=== PATIENT | female | born 1950 | race Caucasian/White ===

== ENCOUNTER 2024-12-13 10:30 | Outpatient (CLI) | payer MEDICARE, SELFPAY ==
[2024-12-13 11:07] LABS: Basophils Absolute Auto 0.1 K/mm3 (0.0-0.1); Basophils Percent Auto 1.2 % (0.2-1.2); Eosinophils Absolute Auto 0.2 K/mm3 (0-0.3); Eosinophils Percent Auto 3.9 % (0-4.4); Hematocrit 44.4 % (37.0-47.0); Hemoglobin 14.1 g/dL (12.0-15.0); Immature Granulocyte Absolute 0.02 K/mm3 (0.00-0.031); Immature Granulocyte Percent A 0.3 % (0-0.5); Lymphocytes Absolute Auto 1.24 K/mm3 (0.9-3.2); Lymphocytes Percent Auto 21.3 % (18.3-44.2); Mean Corpuscular HGB Conc 31.8 g/dl (32-36); Mean Corpuscular Hemoglobin 29.8 pg (26-34); Mean Corpuscular Volume 93.9 fl (80-100); Mean Platelet Volume 9.8 fl (7.4-10.4); Monocytes Absolute Auto 0.6 K/mm3 (0.1-0.6); Neutrophils Absolute Auto 3.6 K/mm3 (1.3-6.7); Neutrophils Percent Auto 62.3 % (45.5-73.1); Platelet Count Result 355 k/mm3 (150-375); Red Blood Count 4.73 M/mm3 (4.2-5.4); Red Cell Distribution Width 13.8 % (11.5-14.5); White Blood Count 5.8 K/mm3 (4.5-10.0)
[2024-12-13 11:21] LABS: Alanine Aminotransferase 31 U/L (6-35); Albumin Level 4.7 g/dL (3.5-5.1); Alkaline Phosphatase 100 U/L (38-126); Anion Gap 10 mmol/L (4-12); Aspartate Amino Transferase 20 U/L (14-36); Bilirubin,Total 0.8 mg/dL (0.2-1.3); Blood Urea Nitrogen 18 mg/dL (7-17); Calcium 10.3 mg/dL (8.4-10.2); Carbon Dioxide 28 mmol/L (22-30); Chloride 101 mmol/L (98-107); Cholesterol 238 mg/dL (0-200); Estimated Glomerular Filt Rate 46; Glucose 165 mg/dL (65-110); HDL Direct 61 mg/dL; Potassium 4.1 mmol/L (3.4-5.0); Sodium 139 mmol/L (137-145); Triglycerides 155 mg/dL (<150)
[2024-12-13 11:29] LABS: NT Pro B Type Natriuretic Pept 1800 pg/mL (19.9-100)
[2024-12-13 11:32] LABS: LDL Cholesterol Direct 141 mg/dL
--- OUTSIDE RECORDS SUMMARY | 2024-12-13 11:40 | XMS_ITS | Clinical Summary ---
Author Organization [facility] Address [address] [place] [address] Care Team Providers Care Aoc Operations Intelligence Officer Name Role Phone Waylon Singletary MD Primary Care Provider Allergies Active Allergy Reactions Criticality Noted Date Comments Codeine Hydrocodone Diarrhea Reaction: diarrhea, Tramadol Vomiting Reaction: vomiting, Medications acetaminophen 500 mg capsule Take 2 capsules (1,000 mg total) by mouth every 6 (six) hours as needed for pain 60 capsule 10/17/2023 Active Active Problems Problem Noted Date Diagnosed Date Sacral insufficiency fracture, initial encounter 10/14/2023 Sacral insufficiency fracture 2023 Calculus of kidney 04/02/2014 Overview (02/19/2017): CALCULUS OF KIDNEY Type 2 diabetes mellitus 04/02/2014 Overview (02/21/2017): DMII WO CMP NT ST UNCNTR Hypertension 04/02/2014 Overview (02/21/2017): HYPERTENSION NOS Hyperlipidemia 04/02/2014 Overview (02/22/2017): HYPERLIPIDEMIA NEC/NOS Immunizations Name Administration Dates Next Due Influenza, Split 09/02/2013 Surgical History Surgery Date Site/Laterality Comments CHOLECYSTECTOMY 2007 Cholecystectomy Medical History Medical History Date Comments Hx Other Medical ? Hx of kidney stones Awareness under anesthesia patie nt states during one procedure she did wake up during the procedure Hypertension GERD (gastroesophageal reflux disease) Family History Medical History Relation Name Comments Diabetes type I Brother Diabetes -Ty pe I; Parkinsonism Father Parkinson's dis ease; Diabetes type II Mother Diabetes -T ype II; Relation Name Status Comments Brother Father Mother Social History Tobacco Use Types Packs/Day Years Used Date Smoking Tobacco: Never Alcohol Use Standard Drinks/Week Comments Yes 0 (1 standard drink = 0.6 oz pur e alcohol) AUDIT-C Answer Date Recorded Q1: How often do you have a drink containing alcohol? Never 10/15/2023 Q2: How many drinks containi ng alcohol do you have on a typical day when you are drinking? Patient does not drink Q3: How often do you have si x or more drinks on one occasion? Never 10/15/2023 Personal Safety Answer Date Recorded Have you ever been in or are you currently in a harmful physical or emotional relationship or is someone making you feel afraid or unsafe? Denies 10/15/2023 Comments Unknown Sex and Gender Information Value Date Recorded Sex Assigned at Not on file Legal Sex Female 12:43 AM WIRE SPLICER Gender Identity Not on file Sexual Orientation Not on file Obstetrics History Last Filed Vital Signs Vital Sign Reading Time Taken Comments Blood Pressure 133/80 10/17/2023 12:11 PM WIRE SPLICER Pulse 103 10/17/2023 12:11 PM WIRE SPLICER Temperature 37.3 ??C (99.1 ??F) 10/17/2023 1 2:11 PM WIRE SPLICER Respiratory Rate 16 10/17/2023 12:1 1 PM WIRE SPLICER Oxygen Saturation 98% 10/17/2023 12: 11 PM WIRE SPLICER Inhaled Oxygen Concentration - - Weight 98.8 kg (217 lb 12.8 oz) 10/14/2023 8:00 PM WIRE SPLICER Height 157.5 cm (5' 2.01 ) 10/14/2023 8:00 PM CS T Body Mass Index 39.83 10/14/2023 8:00 PM WIRE SPLICER Plan of Treatment Health Maintenance Due Date Last Done Comments Albumin Creatinine Ratio, Urine 1949 Colon Cancer Screening-Colonoscopy 1950 Depression Screening 1950 Hepatitis C Screening 1950 Osteoporosis Screening-Bone Density Scan 1949 Dilated Eye Exam 1949 Foot Exam 1949 DTaP/Tdap/Td Vaccine (1 - Tdap) 1960 Hepatitis B Screening 1967 Well Visit 65+ 2014 Zoster Vaccine (2 of 3) 02/06/2016 12/12/2015 Pneumococcal vaccine 65+ (2 of 2 - PPSV23 or PCV20) 02/26/2020 01/01/2020 Hemoglobin A1C 04/13/2024 10/14/2023 Covid-19 Vaccine ( - 2023-2 5 season) 2024 08/19/2023, 05/24/2022, 10/08/2021, Additional history exists Influenza Vaccine (#1) 2024 , 08/31/2022, 09/02/2021, Additional history exists Lipid Panel 10/14/2024 10/14/2023 Fall Risk Assessment 10/17/2024 10/17/2023 eGFR 10/17/2024 10/17/2023, 09/19, 10/14/2023, Additional history exists Medical Devices Implanted Type Area Bun Icer Device Identifier Shelf Expiration Date Model / Serial / Lot Synthes Washer Round Css+ Titanium [id number] - [id number] Implanted:Qty: 1 on 10/15/2023 by Ronal Duvall MD at [facility] Left: Pelvis Synthes I [id number] / / Synthes Screw Bone Cannulated St Full Thread Css+ [id number] Ti 04.355.811s - [id number] Implanted:Qty: 2 on 10/15/2023 by Ronal Duvall MD at [facility] Left: Pelvis Synthes I [id number] S / / Explanted Type Area Bun Icer Device Identifier Shelf Expiration Date Model / Serial / Lot Synthes Screw Bone Cannulated St Full Thread Css+ [id number] Ti [id number] - [id number] Explanted:Qty: 1 on 10/15/2023 by Ronal Duvall MD at [facility] Left: Pelvis Synthes I [id number] S / / Procedures Procedure Name Priority Date/Time Associated Diagnosis Comments EGFR Routine 10/17/2023 12:34 AM WIRE SPLICER LIPID PANEL Routine 10/14/2023 8:47 PM WIRE SPLICER HEMOGLOBIN A1C STAT 10/14/2023 1:57 PM WIRE SPLICER from Last 3 Months or Most Recently Relevant to Health Maintenance Results * (ABNORMAL) eGFR (10/17/2023 12:34 AM WIRE SPLICER) [facility] eGFR 59(L) >=60 mL/min/1. 73 m2 [facility] Comment: Interpretive Data Reference Interval Normal ?>/= 90 mL/min/1.73m2 Mildly decreased* ? 60 - 89 mL/min/1.73m2 Mildly to moderately decreased ?45 - 59 mL/min/1.73m2 Moderately to severely decreased ??30 - 44 mL/min/1.73m2 Severely decreased ?15 - 29 mL/min/1.73m2 Kidney Failure ?< 15 ??mL/min/1.73m2 *Relative to young adult level Estimated glomerular filtration rate is determined by the 2020 CKD-EPI equation recommended by the National Kidney Foundation (A Unifying Approach to GFR Estimation: Recommendations of the NKF-ASK Task Force on Reassessing the Inclusion of Race in Diagnosing Kidney Disease, JASN 2020). The CKD-EPI equation should not be used for patients with unstable renal function and has not been validated in children and those over 70. Current interpretive data was last reviewed 2021. Blood 10/17/2023 12:3 4 AM WIRE SPLICER 10/17/2023 12:47 AM WIRE SPLICER us Sowmya Lazo NP LAB BLOOD ORDERABLES Fi nal Result [facility] Department [place] [address] * (ABNORMAL) Lipid panel (10/14/2023 8:47 PM WIRE SPLICER) [facility] Signature Cholesterol 143 30 - 199 mg/dL [facility] Comment: Interpretive Data Ages < or = 19 years ??Acceptable: ? <170 mg/dL ??Borderline high: ??170-199 mg/dL ??High: ? >or= 200 mg/dL Ages > or = 20 years ??Desirable: ?<200 mg/dL ??Borderline high: ??200-239 mg/dL ??High: ? >or= 240 mg/dL Literature References: 1. Expert Panel on Integrated Guidelines for Cardiovascular Health and Risk Reduction in Children and Adolescents. Pediatrics 2011;128:S213 2. NCEP Expert Panel. Circulation 2004;110:227 Current Interpretive Data was last revised on 2018. Triglycerides 162(H) <=149 mg/dL [facility] Comment: Interpretive Data Ages < or = 9 years ??Acceptable: ? <75 mg/dL ??Borderline high: ??75-99 mg/dL ??High: ? >or= 100 mg/dL Ages 10 to 20 years ??Acceptable: ? <90 mg/dL ??Borderline high: ??90-129 mg/dL ??High: ? >or= 130 mg/dL Ages > or = 20 years ??Desirable: ?<150 mg/dL ??Borderline high: ??150-199 mg/dL ??High: ? 200-499 mg/dL ?Very high: ?? >or= 499 mg/dL Literature References: 1. Expert Panel on Integrated Guidelines for Cardiovascular Health and Risk Reduction in Children and Adolescents. Pediatrics 2011;128:S213 2. NCEP Expert Panel. Circulation 2004;110:227 Current Interpretive Data was last revised on 2018. HDL 35(L) >=40 mg/dL [facility] Comment: Interpretive Data Ages < or = 19 years ??Acceptable: ? >45 mg/dL ??Borderline low: ?? 40-45 mg/dL ??Low: ? <40 mg/dL Ages > or = 20 years ??Desirable: ?>or= 60 mg/dL ??Low: ? <40 mg/dL Literature References: 1. Expert Panel on Integrated Guidelines for Cardiovascular Health and Risk Reduction in Children and Adolescents. Pediatrics 2011;128:S213 2. NCEP Expert Panel. Circulation 2004;110:227 Current Interpretive Data was last revised on 2018. LDL, calculated 76 <=129 mg/dL [facility] Comment: Interpretive Data Ages < or = 19 years ??Acceptable: ? <110 mg/dL ??Borderline high: ??110-129 mg/dL ??High: ?>or= 130 mg/dL Ages > or = 20 years ??Optimal: ? <100 mg/dL ??Near optimal: ?100-129 mg/dL ??Borderline high: ?? 130-159 mg/dL ??High: ?>160 mg/dL Literature References: 1. Expert Panel on Integrated Guidelines for Cardiovascular Health and Risk Reduction in Children and Adolescents. Pediatrics 2011;128:S213 2. NCEP Expert Panel. Circulation 2004;110:227 Current Interpretive Data was last revised on 2018. Non-HDL Cholesterol 108 mg/dL [facility] Comment: Interpretive Data Ages < or = 19 years ??Acceptable: ?<120 mg/dL ??Borderline high: ??120-144 mg/dL ??High: ?>145 mg/dL Ages > or = 20 years ??When triglycerides are >200 mg/dL, Non-HDL cholesterol is a secondary target of ? therapy with treatment goals that are 30 mg/dL greater than the LDL cholesterol target. ? Literature References: 1. Expert Panel on Integrated Guidelines for Cardiovascular Health and Risk Reduction in Children and Adolescents. Pediatrics 2011;128:S213 2. NCEP Expert Panel. Circulation 2004;110:227 Current Interpretive Data was last revised on 2018. Chol/HDL ratio 4 [facility] Blood 10/14/2023 8:47 PM WIRE SPLICER 10/14/2023 10:40 PM WIRE SPLICER Result [facility] Dung Wilkerson MD LAB BLOOD ORDERABLES Final Result Performing Organization Address [facility] Co de Phone Number [facility] Department [place] [address] * (ABNORMAL) Hemoglobin A1c (10/14/2023 1:57 PM WIRE SPLICER) Hgb A1C 7.5(H) 4.0 - 5.6 % [facility] Estimated Average Glucose 169 mg/dL [facility] Comment: The ADA recommends reporting an estimated Average Glucose (eAG) with all Hemoglobin A1c results using the equation derived from a study of 507 normal and diabetic adults. ??Minority populations were underrepresented and children were not included. ?? (Diabetes Care 2020; 43(S1): S66-S76). ??The eAG is not equivalent to a fasting glucose. Blood 10/14/2023 1:57 PM WIRE SPLICER 10/14/2023 2:14 PM WIRE SPLICER Matilda Moralez MD LAB BLOOD ORDERABLES Final Result Performing Organization Address City/[facility] de Phone Number [facility] Department [place] [address] from Last 3 Months or Most Recently Relevant to Health Maintenance Insurance MEDICARE [employer]IONS MED[employer]IONS Advance Directives For more information, please contact: [phone] * Full Code (Latest Code Status on File) Date Activated Date Inactivated Comments 10/14/2023 7:09 PM 10/17/2023 7:25 PM Care Teams Aoc Operations Intelligence Officer Relationship Specialty Start Date End Date Waylon Singletary MD [address] [place] [address] PCP - General 02/26/11
--- OUTSIDE RECORDS SUMMARY | 2024-12-13 11:40 | XMS_ITS | Referral Summary ---
Author Organization [facility] Address [address] [place] [address] Care Team Providers Care Driver/Guide Name Role Phone Waylon Singletary MD Primary [...] Administration Dates Next Due Influenza, Split 09/02/2013 Social History Tobacco Use Types Packs/Day Years [...] on file Legal Sex Female 12:43 AM KITCHEN ASSISTANT Gender Identity Not on file Sexual Orientation Not on file Last Filed Vital Signs Vital Sign Reading Time Taken Comments Blood Pressure 133/80 10/17/2023 12:11 PM KITCHEN ASSISTANT Pulse 103 10/17/2023 12:11 PM KITCHEN ASSISTANT Temperature 37.3 ??C (99.1 ??F) 10/17/2023 1 2:11 PM KITCHEN ASSISTANT Respiratory Rate 16 10/17/2023 12:1 1 PM KITCHEN ASSISTANT Oxygen Saturation 98% 10/17/2023 12: 11 PM KITCHEN ASSISTANT Inhaled Oxygen Concentration - - Weight 98.8 kg (217 lb 12.8 oz) 10/14/2023 8:00 PM KITCHEN ASSISTANT Height 157.5 cm (5' 2.01 ) 10/14/2023 8:00 PM CS T Body Mass Index 39.83 10/14/2023 8:00 PM KITCHEN ASSISTANT Plan of Treatment Not on file Medical Devices Implanted Type Area Steward/Stewardess Third Device Identifier Shelf Expiration Date Model / Serial / Lot Synthes Washer Round Css+ Titanium 908.05 - [id number] Implanted:Qty: 1 on 10/15/2023 by Ronal Duvall MD at [facility] Left: Pelvis Synthes I .05 / / Synthes Screw Bone Cannulated St Full Thread Css+ [id number] Ti 1s - [id number] Implanted:Qty: 2 on 10/15/2023 by Ronal Duvall MD at [facility] Left: Pelvis Synthes I S / / Explanted Type Area Steward/Stewardess Third Device Identifier Shelf Expiration Date Model / Serial / Lot Synthes Screw Bone Cannulated St Full Thread Css+ [id number] Ti 809s - [id number] Explanted:Qty: 1 on 10/15/2023 by Ronal Duvall MD at [facility] Left: Pelvis Synthes I 355.809 S / / Procedures Procedure Name Priority Date/Time Associated Diagnosis Comments EGFR Routine 10/17/2023 12:34 AM KITCHEN ASSISTANT LIPID PANEL Routine 10/14/2023 8:47 PM KITCHEN ASSISTANT HEMOGLOBIN A1C STAT 10/14/2023 1:57 PM KITCHEN ASSISTANT from Last 3 Months or Most Recently Relevant to Health Maintenance Results * (ABNORMAL) eGFR (10/17/2023 12:34 AM KITCHEN ASSISTANT) eGFR 59(L) >=60 mL/min/1. 73 m2 [facility] [...] reviewed 2021. Blood 10/17/2023 12:3 4 AM KITCHEN ASSISTANT 10/17/2023 12:47 AM KITCHEN ASSISTANT us Sowmya Lazo NP LAB BLOOD ORDERABLES Fi nal Result [facility] One [facility] Department [place] [address] * (ABNORMAL) Lipid panel (10/14/2023 8:47 PM KITCHEN ASSISTANT) Cholesterol 143 30 - 199 mg/dL [facility] Comment: Interpretive Data Ages < or [...] on 2018. Triglycerides 162(H) <=149 mg/dL [facility] Comment: Interpretive Data Ages < or [...] revised on 2018. HDL 35(L) >=40 mg/dL [facility] Comment: Interpretive Data Ages < or [...] on 2018. LDL, calculated 76 <=129 mg/dL [facility] Comment: Interpretive Data Ages < or [...] on 2018. Non-HDL Cholesterol 108 mg/dL [facility] Comment: Interpretive Data Ages < or [...] last revised on 2018. Chol/HDL ratio 4 [facility] Blood 10/14/2023 8:47 PM KITCHEN ASSISTANT 10/14/2023 10:40 PM KITCHEN ASSISTANT Dung Wilkerson MD LAB BLOOD ORDERABLES Final Result Performing Organization Address [facility] de Phone Number [facility] [place] [employer] [place] [address] * (ABNORMAL) Hemoglobin A1c (10/14/2023 1:57 PM KITCHEN ASSISTANT) Hgb A1C 7.5(H) 4.0 - 5.6 % [facility] Estimated Average Glucose 169 mg/dL [facility] Comment: The ADA recommends reporting an estimated Average Glucose (eAG) with all Hemoglobin A1c results using the equation derived from a study of 507 normal and diabetic adults. ??Minority populations were underrepresented and children were not included. ?? (Diabetes Care 2020; 43(S1): S66-S76). ??The eAG is not equivalent to a fasting glucose. Blood 10/14/2023 1:57 PM KITCHEN ASSISTANT 10/14/2023 2:14 PM KITCHEN ASSISTANT Matilda Moralez MD LAB BLOOD ORDERABLES Final Result Performing Organization Address [facility] de Phone Number [facility] [place] [employer] [place] [address] from Last 3 Months or Most Recently Relevant to Health Maintenance Insurance MEDICARE [facility] MEDIC[facility] Address: [address] [place], [place] [id number] MEDICARE [employer]IONS [facility] MEDICARE Address: [address] [place] [address] Advance Directives For more information, please contact: [phone] * Full Code (Latest Code Status on File) Date Activated Date Inactivated Comments 10/14/2023 7:09 PM 10/17/2023 7:25 PM Care Teams Driver/Guide Relationship Specialty Start Date End Date Waylon Singletary MD [address] [facility] [place] [address] PCP - General 02/26/11
[2024-12-13 11:51] LABS: Hemoglobin A1C 7.7 % (<5.7)
[2024-12-13 12:40] LABS: Hepatitis C Virus Antibody Negative (Negative)
== END 2024-12-13 10:31 | disposition home or self-care (01) ==
LOC: ANHLAB 10:37
PROVIDERS: PCP Nurse Practitioner Family; Visit Provider Nurse Practitioner Family
DX: I50.9 Heart failure, unspecified (principal); E11.9 Type 2 diabetes mellitus without complications; Z11.59 Encounter for screening for other viral diseases; Z13.220 Encounter for screening for lipoid disorders; Z13.29 Encounter for screening for other suspected endocrine disorder; Z13.9 Encounter for screening, unspecified
CPT/HCPCS: 36415; 80053; 80061; 83036; 83880; 84439; 84443; 85025; 86803

== ENCOUNTER 2025-01-31 10:23 | Outpatient (CLI) | payer MEDICARE, SELFPAY ==
[2025-01-31 10:56] LABS: Basophils Absolute Auto 0.1 K/mm3 (0.0-0.1); Basophils Percent Auto 0.8 % (0.2-1.2); Eosinophils Absolute Auto 0.3 K/mm3 (0-0.3); Eosinophils Percent Auto 4.3 % (0-4.4); Hematocrit 43.9 % (37.0-47.0); Hemoglobin 13.8 g/dL (12.0-15.0); Immature Granulocyte Absolute 0.03 K/mm3 (0.00-0.031); Immature Granulocyte Percent A 0.4 % (0-0.5); Lymphocytes Absolute Auto 1.81 K/mm3 (0.9-3.2); Lymphocytes Percent Auto 23.4 % (18.3-44.2); Mean Corpuscular HGB Conc 31.4 g/dl (32-36); Mean Corpuscular Hemoglobin 30.2 pg (26-34); Mean Corpuscular Volume 96.1 fl (80-100); Mean Platelet Volume 9.9 fl (7.4-10.4); Monocytes Absolute Auto 0.8 K/mm3 (0.1-0.6); Monocytes Percent Auto 9.7 % (2.6-8.5); Neutrophils Absolute Auto 4.8 K/mm3 (1.3-6.7); Neutrophils Percent Auto 61.4 % (45.5-73.1); Platelet Count Result 300 k/mm3 (150-375); Red Blood Count 4.57 M/mm3 (4.2-5.4); Red Cell Distribution Width 14.5 % (11.5-14.5); White Blood Count 7.7 K/mm3 (4.5-10.0)
[2025-01-31 11:09] LABS: Potassium 4.5 mmol/L (3.4-5.0)
[2025-01-31 11:18] LABS: NT Pro B Type Natriuretic Pept 2360 pg/mL (19.9-100)
[2025-01-31 11:20] LABS: Anion Gap 13 mmol/L (4-12); Blood Urea Nitrogen 19 mg/dL (7-17); Calcium 10.5 mg/dL (8.4-10.2); Carbon Dioxide 29 mmol/L (22-30); Chloride 103 mmol/L (98-107); Cholesterol 160 mg/dL (0-200); Estimated Glomerular Filt Rate 32; Glucose 102 mg/dL (65-110); HDL Direct 59 mg/dL; LDL Cholesterol Direct 63 mg/dL; Sodium 145 mmol/L (137-145); Triglycerides 127 mg/dL (<150)
--- OUTSIDE RECORDS SUMMARY | 2025-01-31 12:45 | XMS_ITS | Clinical Summary ---
Author Organization [facility] Address [address] [place] [address] Care Team Providers Care Batch Plant Supervisor Name Role Phone Waylon Singletary MD Primary Care Provider [phone] Allergies Active Allergy Reactions Criticality Noted Date [...] Hyperlipidemia 04/02/2014 Overview (02/22/2017): HYPERLIPIDEMIA NEC/NOS Immunizations Immunization Administration Dates Next Due Influenza, Split 09/02/2013 [...] on file Legal Sex Female 12:43 AM [facility] Gender Identity Not on file Sexual Orientation Not on file Obstetrics History Last Filed Vital Signs Vital Sign Reading Time Taken Comments Blood Pressure 133/80 10/17/2023 12:11 PM [facility] Pulse 103 10/17/2023 12:11 PM [facility] Temperature 37.3 C (99.1 F) 10/17/2023 12:11 PM [facility] Respiratory Rate 16 10/17/2023 12:1 1 PM [facility] Oxygen Saturation 98% 10/17/2023 12: 11 PM [facility] Inhaled Oxygen Concentration - - Weight 98.8 kg (217 lb 12.8 oz) 10/14/2023 8:00 PM [facility] Height 157.5 cm (5' 2.01 ) 10/14/2023 8:00 PM CS T Body Mass Index 39.83 10/14/2023 8:00 PM [facility] Plan of Treatment Health Maintenance Due Date [...] Pneumococcal vaccine 65+ (2 of 2 - PPSV23) 02/26/2020 01/01/2020 Hemoglobin A1C 04/13/2024 10/14/2023 Covid-19 Vaccine (6 2023-2 5 season) 2024 08/19/2023, 05/24/2022, 10/08/2021, Additional history exists Influenza Vaccine (#1) 2024 , 08/31/2022, 09/02/2021, Additional history exists Lipid Panel 10/14/2024 10/14/2023 Fall Risk Assessment 10/17/2024 10/17/2023 eGFR 10/17/2024 10/17/2023, 09/19, 10/14/2023, Additional history exists Medical Devices Implanted Type Area Plumbing Service Technician Device Identifier Shelf Expiration Date Model / Serial / Lot Synthes Washer Round Css+ Titanium 04.353.908.05 - [id number] Implanted:Qty: 1 on 10/15/2023 by Ronal Duvall MD at [facility] Left: Pelvis Synthes I [id number] / / Synthes Screw Bone Cannulated St Full Thread Css+ [id number] 04.355.811s - [id number] Implanted:Qty: 2 on 10/15/2023 by Ronal Duvall MD at [facility] Left: Pelvis Synthes I [id number] S / / Explanted Type Area Plumbing Service Technician Device Identifier Shelf Expiration Date Model / Serial / Lot Synthes Screw Bone Cannulated St Full Thread Css+ [id number] Ti [id number] - [id number] Explanted:Qty: 1 on 10/15/2023 by Ronal Duvall MD at [facility] Left: Pelvis Synthes I [id number] S / / Procedures Procedure Name Priority Date/Time Associated Diagnosis Comments EGFR Routine 10/17/2023 12:34 AM [facility] LIPID PANEL Routine 10/14/2023 8:47 PM [facility] HEMOGLOBIN A1C STAT 10/14/2023 1:57 PM [facility] from Last 3 Months or Most Recently Relevant to Health Maintenance Results * (ABNORMAL) eGFR (10/17/2023 12:34 AM [facility]) eGFR 59(L) >=60 mL/min/1. 73 m2 [facility] Comment: Interpretive Data Reference Interval Normal >/= 90 mL/min/1.73m2 Mildly decreased* 60 - 89 mL/min/1.73m2 Mildly to moderately decreased 45 - 59 mL/min/1.73m2 Moderately to severely decreased 30 - 44 mL/min/1.73m2 Severely decreased 15 - 29 mL/min/1.73m2 Kidney Failure < 15 mL/min/1.73m2 *Relative to young adult level Estimated glomerular [...] reviewed 2021. Blood 10/17/2023 12:3 4 AM [facility] 10/17/2023 12:47 AM [facility] us Sowmya Lazo NP LAB BLOOD ORDERABLES [facility] Result [facility] Department [place] [address] * (ABNORMAL) Lipid panel (10/14/2023 8:47 PM [facility]) Cholesterol 143 30 - 199 mg/dL [facility] Comment: Interpretive Data Ages < or = 19 years Acceptable: <170 mg/dL Borderline high: 170-199 mg/dL High: >or= 200 mg/dL Ages > or = 20 years Desirable: <200 mg/dL Borderline high: 200-239 mg/dL High: >or= 240 mg/dL Literature References: 1. Expert Panel on Integrated Guidelines for Cardiovascular Health and Risk Reduction in Children and Adolescents. Pediatrics 2011;128:S213 2. NCEP Expert Panel. Circulation 2004;110:227 Current Interpretive Data was last revised on 2018. Triglycerides 162(H) <=149 mg/dL [facility] Comment: Interpretive Data Ages < or = 9 years Acceptable: <75 mg/dL Borderline high: 75-99 mg/dL High: >or= 100 mg/dL Ages 10 to 20 years Acceptable: <90 mg/dL Borderline high: 90-129 mg/dL High: >or= 130 mg/dL Ages > or = 20 years Desirable: <150 mg/dL Borderline high: 150-199 mg/dL High: 200-499 mg/dL Very high: >or= 499 mg/dL Literature References: 1. Expert Panel on Integrated Guidelines for Cardiovascular Health and Risk Reduction in Children and Adolescents. Pediatrics 2011;128:S213 2. NCEP Expert Panel. Circulation 2004;110:227 Current Interpretive Data was last revised on 2018. HDL 35(L) >=40 mg/dL [facility] Comment: Interpretive Data Ages < or = 19 years Acceptable: >45 mg/dL Borderline low: 40-45 mg/dL Low: <40 mg/dL Ages > or = 20 years Desirable: >or= 60 mg/dL Low: <40 mg/dL Literature References: 1. Expert Panel on Integrated Guidelines for Cardiovascular Health and Risk Reduction in Children and Adolescents. Pediatrics 2011;128:S213 2. NCEP Expert Panel. Circulation 2004;110:227 Current Interpretive Data was last revised on 2018. LDL, calculated 76 <=129 mg/dL [facility] Comment: Interpretive Data Ages < or = 19 years Acceptable: <110 mg/dL Borderline high: 110-129 mg/dL High: >or= 130 mg/dL Ages > or = 20 years Optimal: <100 mg/dL Near optimal: 100-129 mg/dL Borderline high: 130-159 mg/dL High: >160 mg/dL Literature References: 1. Expert Panel on Integrated Guidelines for Cardiovascular Health and Risk Reduction in Children and Adolescents. Pediatrics 2011;128:S213 2. NCEP Expert Panel. Circulation 2004;110:227 Current Interpretive Data was last revised on 2018. Non-HDL Cholesterol 108 mg/dL [facility] Comment: Interpretive Data Ages < or = 19 years Acceptable: <120 mg/dL Borderline high: 120-144 mg/dL High: >145 mg/dL Ages > or = 20 years When triglycerides are >200 mg/dL, Non-HDL cholesterol is a secondary target of therapy with treatment goals that are 30 mg/dL greater than the LDL cholesterol target. Literature References: 1. Expert Panel on Integrated Guidelines for Cardiovascular Health and Risk Reduction in Children and Adolescents. Pediatrics 2011;128:S213 2. NCEP Expert Panel. Circulation 2004;110:227 Current Interpretive Data was last revised on 2018. Chol/HDL ratio 4 [facility] Blood 10/14/2023 8:47 PM [facility] 10/14/2023 10:40 PM [facility] Dung Wilkerson MD LAB BLOOD ORDERABLES Final Result Performing Organization Address [facility] de Phone Number [facility] [place] [address] * (ABNORMAL) Hemoglobin A1c (10/14/2023 1:57 PM [facility]) Hgb A1C 7.5(H) 4.0 - 5.6 % [facility] Estimated Average Glucose 169 mg/dL [facility] Comment: The ADA recommends reporting an estimated Average Glucose (eAG) with all Hemoglobin A1c results using the equation derived from a study of 507 normal and diabetic adults. Minority populations were underrepresented and children were not included. (Diabetes Care 2020; 43(S1): S66-S76). The eAG is not equivalent to a fasting glucose. Blood 10/14/2023 1:57 PM [facility] 10/14/2023 2:14 PM [facility] Matilda Moralez MD LAB BLOOD ORDERABLES Final Result Performing Organization Address [facility] Co de Phone Number [facility] [place] [address] from Last 3 Months or Most Recently Relevant to Health Maintenance Insurance [employer] Member Subscriber Plan / Payer ( fective 2022-Present) Name:Janie Esthela L Relation to Subscriber:Self Name:Dipak Limabetsy Locke Payer ID:[id number] (NAIC) Type:UHC MEDICARE Address: [place] [id number] [employer] [facility] MED[facility] Address: [place] [address] Advance Directives For more information, please contact: [phone] * Full Code (Latest Code Status on File) Date Activated Date Inactivated Comments 10/14/2023 7:09 PM 10/17/2023 7:25 PM Care Teams Batch Plant Supervisor Relationship Specialty Start Date End Date Waylon Singletary MD [address] [facility] [place] [address] [facility] - General 02/26/11
--- OUTSIDE RECORDS SUMMARY | 2025-01-31 12:45 | XMS_ITS | Referral Summary ---
Author Organization [facility] Address [address] [place] [address] Care Team Providers Care Green Building Engineer Name Role Phone Waylon Singletary MD Primary [...] on file Legal Sex Female 12:43 AM [facility] Gender Identity Not on file Sexual Orientation Not on file Last Filed Vital Signs Vital Sign Reading Time Taken Comments Blood Pressure 133/80 10/17/2023 12:11 PM [facility] Pulse 103 10/17/2023 12:11 PM [facility] Temperature 37.3 C (99.1 F) 10/17/2023 12:11 PM [facility] Respiratory Rate 16 10/17/2023 12:1 1 PM [facility] Oxygen Saturation 98% 10/17/2023 12: 11 PM [facility] Inhaled Oxygen Concentration - - Weight 98.8 kg (217 lb 12.8 oz) 10/14/2023 8:00 PM [facility] Height 157.5 cm (5' 2.01 ) 10/14/2023 8:00 PM CS T Body Mass Index 39.83 10/14/2023 8:00 PM [facility] Plan of Treatment Not on file Medical Devices Implanted Type Area Flue Lining Dipper Device Identifier Shelf Expiration Date Model / Serial / Lot Synthes Washer Round Css+ Titanium 908.05 - [id number] Implanted:Qty: 1 on 10/15/2023 by Ronal Duvall MD at [facility] Left: Pelvis Synthes I 908 .05 / / Synthes Screw Bone Cannulated St Full Thread Css+ [id number] Ti 1s - [id number] Implanted:Qty: 2 on 10/15/2023 by Ronal Duvall MD at [facility] Left: Pelvis Synthes I S / / Explanted Type Area Flue Lining Dipper Device Identifier Shelf Expiration Date Model / Serial / Lot Synthes Screw Bone Cannulated St Full Thread Css+ [id number] Ti 809s - [id number] Explanted:Qty: 1 on 10/15/2023 by Ronal Duvall MD at [facility] Left: Pelvis Synthes I [id number] S / / Procedures Procedure Name Priority Date/Time Associated Diagnosis Comments EGFR Routine 10/17/2023 12:34 AM [facility] LIPID PANEL Routine 10/14/2023 8:47 PM [facility] HEMOGLOBIN A1C STAT 10/14/2023 1:57 PM [facility] from Last 3 Months or Most Recently Relevant to Health Maintenance Results * (ABNORMAL) eGFR (10/17/2023 12:34 AM [facility]) eGFR 59(L) >=60 mL/min/1. 73 m2 [facility] [...] reviewed 2021. Blood 10/17/2023 12:3 4 AM [facility] 10/17/2023 12:47 AM [facility] us Sowmya Lazo NP LAB BLOOD ORDERABLES Fi nal Result [facility] Department [place] [address] * (ABNORMAL) Lipid panel (10/14/2023 8:47 PM [facility]) Cholesterol 143 30 - 199 mg/dL [facility] Comment: Interpretive Data Ages < or = [...] revised on 2018. Triglycerides 162(H) <=149 mg/dL [facility] Comment: Interpretive Data Ages < or = [...] revised on 2018. HDL 35(L) >=40 mg/dL [facility] Comment: Interpretive Data Ages < or = [...] on 2018. LDL, calculated 76 <=129 mg/dL [facility] Comment: Interpretive Data Ages < or [...] on 2018. Non-HDL Cholesterol 108 mg/dL [facility] Comment: Interpretive Data Ages < or = [...] last revised on 2018. Chol/HDL ratio 4 [facility] Blood 10/14/2023 8:47 PM [facility] 10/14/2023 10:40 PM [facility] Dung Wilkerson MD LAB BLOOD ORDERABLES Final Result [facility] Department [place] [address] * (ABNORMAL) Hemoglobin A1c (10/14/2023 1:57 PM [facility]) Hgb A1C 7.5(H) 4.0 - 5.6 % [facility] Estimated Average Glucose 169 mg/dL [facility] Comment: The ADA recommends reporting an estimated Average Glucose (eAG) with all Hemoglobin A1c results using the equation derived from a study of 507 normal and diabetic adults. Minority populations were underrepresented and children were not included. (Diabetes Care 2020; 43(S1): S66-S76). The eAG is not equivalent to a fasting glucose. Blood 10/14/2023 1:57 PM [facility] 10/14/2023 2:14 PM [facility] us Matilda Moralez MD LAB BLOOD ORDERABLES Final Result [facility] Department [place] [address] from Last 3 Months or Most Recently Relevant to Health Maintenance Insurance [employer] [facility] Address: [address] [address] [place] [address] [employer] [facility] Address: [address] [address] [place] [address] Advance Directives For more information, please contact: [phone] * Full Code (Latest Code Status on File) Date Activated Date Inactivated Comments 10/14/2023 7:09 PM 10/17/2023 7:25 PM Care Teams Green Building Engineer Relationship Specialty Start Date End Date Waylon Singletary MD [address] [place] [address] PCP - General 02/26/11
== END 2025-01-31 10:24 | disposition home or self-care (01) ==
LOC: ANHLAB 10:31
PROVIDERS: PCP Nurse Practitioner Family; Visit Provider Internal Medicine Cardiovascular Disease
DX: R06.02 Shortness of breath (principal); I48.91 Unspecified atrial fibrillation; I10 Essential (primary) hypertension; I25.3 Aneurysm of heart; F17.200 Nicotine dependence, unspecified, uncomplicated; E11.9 Type 2 diabetes mellitus without complications; E78.00 Pure hypercholesterolemia, unspecified; Z82.49 Family history of ischemic heart disease and other diseases of the circulatory system
CPT/HCPCS: 36415; 80048; 80061; 83880; 85025